=== PATIENT | male | born 1960 | race Caucasian/White ===

== ENCOUNTER 2024-04-07 11:39 | Emergency (ER) | payer BC, SELFPAY ==
[2024-04-07 11:46] VITALS: BP 165/89
--- NOTE | 2024-04-07 13:03 | ED.GENMED ---
History of Present Illness
<Geena Marie PA-C - Last Filed: 04/08/24 15:36>
General
Chief Complaint: Flank Pain
Source: patient
Exam Limitations: none
Time Seen by Provider: 04/07/24 12:05
Nursing documentation reviewed up to this point in time: agreed with
History of Present Illness
History of Present Illness:
63 y/o M with h/o many kidney stones int he past
has had L flank pain similar to previous stones for 2 weeks but today pain worse, n/v x 3 and unable to urinate well since last night
he hasn't been taking anything for painn
previously he has been able to pass all stones
no fever, chills, dysuria, urinary bleeding, abdominal distension, constipation
Past History
<JANI Todd Last Filed: 04/08/24 15:36>
Past History
ED Past Medical History: Hypercholesterolemia and Other (kidney stones)
Social History
Tobacco: Non-smoker
Review of Systems
<JANI Todd Last Filed: 04/08/24 15:36>
Review of Systems
Allergies reviewed?: Yes
All Other Systems: Not applicable
Phy Exam
<JANI Todd Last Filed: 04/08/24 15:36>
Physical Exam
Physical Exam:
GENERAL: Alert, comfotable, well appearing
Neck: supple
CARDIAC: Regular rate and rhythm .
LUNGS: Clear breath sounds bilaterally, no acute respiratory distress, no wheezes/rales/rhonchi
ABDOMEN: Soft, normal bowel sounds, slight bladder fullness, nontender no guarding, no rebound, neg garzon's
NEUROLOGICAL: Alert and oriented, no focal neuro deficits
SKIN: Warm and dry, skin intact.
PSYCH: Normal and appropriate interaction.
Course
<Geena Marie PA-C - Last Filed: 04/08/24 15:36>
Orders/Labs/Results
Orders:
Orders
04/07/24 12:59
Bladder Scan- Treatment ONCE
0.9% Sodium Chloride 1000 ml [Nss] 1,000 ml IV BOLUS
Ketorolac [Toradol] 15 mg IV NOW STA
Ondansetron Injectable [Zofran] 4 mg IV NOW STA
04/07/24 13:39
Complete Blood Count/With Diff Urgent
Comprehensive Metabolic Panel Urgent
Lipase Urgent
Urinalysis Reflex To Culture Urgent
Date Specimen was Collected: 04/07/24
Time Specimen was Collected: 13:27
Urine Microscopic Reflex Cult Urgent
04/07/24 15:28
CT Abd/pel Without Iv Or Oral Urgent
Comment:
Reason For Exam: suspected kidney stone L
Abnormal Lab Results
04/07/24
13:39
Hct 38.1 L %
(39.0-52.0)
MCHC 37.3 H g/dL
(33.0-37.0)
Absolute Neuts (auto) 9.1 H 10^3/uL
(1.4-6.5)
Absolute Lymphs (auto) 0.6 L 10^3/uL
(1.2-3.4)
Absolute Monos (auto) 0.7 H 10^3/uL
(0.1-0.6)
Neutrophils % 86.3 H %
(42.2-75.2)
Lymphocytes % 6.0 L %
(20.5-51.1)
BUN 23 H mg/dl
(9-20)
Glucose 110 H mg/dl
(70-99)
Total Protein 6.2 L g/dl
(6.3-8.2)
Ur Occult Blood Reflex 1+ A
(Negative)
Urine Bilirubin 1+ A
(Negative)
Urine RBC 26-30 A /HPF
(0-2)
04/07/24 13:39
04/07/24 13:39
Vital Signs
Initial and Last Documented VS:
Initial Vital Signs
Temp Pulse Resp BP Pulse Ox
97.8 F 67 18 165/89 100
04/07/24 11:46 04/07/24 11:46 04/07/24 11:46 04/07/24 11:46 04/07/24 11:46
Last Documented Vital Signs
Temp Pulse Resp BP Pulse Ox
97.8 F 59 16 119/79 100
04/07/24 11:46 04/07/24 15:22 04/07/24 15:22 04/07/24 15:22 04/07/24 15:22
<CEM Cosby - Last Filed: 04/07/24 22:51>
Orders/Labs/Results
Orders:
Orders
04/07/24 12:59
Bladder Scan- Treatment ONCE
0.9% Sodium Chloride 1000 ml [Nss] 1,000 ml IV BOLUS
Ketorolac [Toradol] 15 mg IV NOW STA
Ondansetron Injectable [Zofran] 4 mg IV NOW STA
04/07/24 13:39
Complete Blood Count/With Diff Urgent
Comprehensive Metabolic Panel Urgent
Lipase Urgent
Urinalysis Reflex To Culture Urgent
Date Specimen was Collected: 04/07/24
Time Specimen was Collected: 13:27
Urine Microscopic Reflex Cult Urgent
04/07/24 15:28
CT Abd/pel Without Iv Or Oral Urgent
Comment:
Reason For Exam: suspected kidney stone L
Abnormal Lab Results
04/07/24
13:39
Hct 38.1 L %
(39.0-52.0)
MCHC 37.3 H g/dL
(33.0-37.0)
Absolute Neuts (auto) 9.1 H 10^3/uL
(1.4-6.5)
Absolute Lymphs (auto) 0.6 L 10^3/uL
(1.2-3.4)
Absolute Monos (auto) 0.7 H 10^3/uL
(0.1-0.6)
Neutrophils % 86.3 H %
(42.2-75.2)
Lymphocytes % 6.0 L %
(20.5-51.1)
BUN 23 H mg/dl
(9-20)
Glucose 110 H mg/dl
(70-99)
Total Protein 6.2 L g/dl
(6.3-8.2)
Ur Occult Blood Reflex 1+ A
(Negative)
Urine Bilirubin 1+ A
(Negative)
Urine RBC 26-30 A /HPF
(0-2)
04/07/24 13:39
04/07/24 13:39
Vital Signs
Initial and Last Documented VS:
Initial Vital Signs
Temp Pulse Resp BP Pulse Ox
97.8 F 67 18 165/89 100
04/07/24 11:46 04/07/24 11:46 04/07/24 11:46 04/07/24 11:46 04/07/24 11:46
Last Documented Vital Signs
Temp Pulse Resp BP Pulse Ox
97.8 F 59 16 119/79 100
04/07/24 11:46 04/07/24 15:22 04/07/24 15:22 04/07/24 15:22 04/07/24 15:22
<Geena Marie PA-C - Last Filed: 04/08/24 15:36>
MDM/Problems Addressed
Differential Diagnosis Includes:
kidney stone, infetino, retetnion
MDM/Problems Addressed:
63 y/o M with h/o mulitple stones
abdiel is urologist
L flank pain intermittently x 2 weeks
felt worse today with n/v and prompted him to call urologist who told him to come in
pt is very stoic and looks comfortable
pain relieved with toradol
cr 1.3
ua neg for infection
pending CT scan
173: Received signout on patient. CAT scan does show a 3-4 mm calculus within the proximal left ureter with mild hydroureteronephrosis. Patient feels well received Toradol and Zofran here feeling much better. No evidence of infection in urine
normal white count and normal creatinine. I spoke with patient's urologist Dr. Ching . Patient is traveling to [place] on Friday however urology will attempt to try to put patient for the OR schedule on Friday.
Patient is to call the office tomorrow. Patient is to take Flomax nausea medicine and as per urology will give a prescription for Toradol. As per urology if patient were to travel with stent in place he would likely give patient pain medication
for discomfort post op.
Pt wishes to go home.
He was instructed to call urology first thing in the morning and he is to return if any worsening of symptoms.
<CEM Cosby - Last Filed: 04/07/24 22:51>
MDM/Problems Addressed
MDM/Problems Addressed:
1730: Received signout on patient. CAT scan does show a 3-4 mm calculus within the proximal left ureter with mild hydroureteronephrosis. Patient feels well received Toradol and Zofran here feeling much better. No evidence of infection in urine
normal white count and normal creatinine. I spoke with patient's urologist Dr. Ching . Patient is traveling to [place] on Friday however urology will attempt to try to put patient for the OR schedule on Friday.
Patient is to call the office tomorrow. Patient is to take Flomax nausea medicine and as per urology will give a prescription for Toradol. As per urology if patient were to travel with stent in place he would likely give patient pain medication
for discomfort post op.
Pt wishes to go home.
He was instructed to call urology first thing in the morning and he is to return if any worsening of symptoms.
<CEM Cosby - Last Filed: 04/07/24 22:51>
*Radiology
Radiology exam reviewed: radiology read reviewed
*Pulse Oximetry
Patient hypoxic: no
*Critical Care Note
Total Time (30-74mins, 75-104mins- exclusive of procedures): Not Applicable
ED Attending Note
<Geena Marie PA-C - Last Filed: 04/08/24 15:36>
-
Portions of this chart may have been created with voice recognition software.� Occasional wrong word or��sound alike� substitutions may have occurred due to the inherent limitations of voice recognition software.
Discharge Plan
Departure
Patient Disposition: Home (Routine Discharge)
Date of Disposition: 04/07/24
Time of Disposition: 17:50
Patient with high blood pressure during this ER visit?: Yes
Condition: Fair
Covid-19: Not Applicable
Discharge Problem:
renal colic
Instructions: Kidney Stones (DC), Flank Pain (DC), BLOOD PRESSURE
Prescriptions:
New
ondansetron 4 mg tablet,disintegrating
4 mg PO Q8H PRN (Reason: nausea and vomiting) Qty: 10 0RF
ketorolac 10 mg tablet
10 mg PO TID PRN (Reason: pain) Qty: 10 0RF
tamsulosin [Flomax] 0.4 mg capsule
0.4 mg PO DAILY Qty: 7 0RF
Referrals:
Emilio Preciado Jr., [Family Provider] -
Andre Ching MD [Active] -
Activity Restrictions/Additional Instructions:
As discussed stay well-hydrated. Strain all urine. You may take Toradol 10 mg orally every 8 hours as needed for pain. In addition a prescription for Flomax ( to help pass stone ) and Zofran ( for nausea) sent to pharmacy take as directed.
Call urology first thing in the morning for an appointment as soon as possible and for possible OR for stent on Friday. Return however to the ER if any worsening of symptoms include increased pain nausea vomiting fever chills or any further
concerns.
Interventions
Interventions:
*Risk Screen - Suicide Last Done: 04/07/24 14:09
*General Assessment Last Done: 04/07/24 14:09
*Neglect/Abuse Screening Last Done: 04/07/24 14:09
ED- Fall Risk Assessment Last Done: 04/07/24 14:09
*ED COVID-19 Vaccine History Last Done: 04/07/24 14:09
*Nursing Disposition Last Done: 04/07/24 17:55
GA-Kzvydo-Rrgcsgetug Assessment Last Done: 04/07/24 14:09
ED-Male Genitourinary Assessment Last Done: 04/07/24 14:09
Discharge Date and Time
Discharge Date/Time: 04/07/24 17:55
Print Language: KOREAN
[2024-04-07] MEDS: NSS 1000 IV (13:42)
[2024-04-07] MEDS: ZOFRAN 4 MG IV (13:43)
[2024-04-07] MEDS: TORADOL 15 MG IV (13:43)
[2024-04-07 14:16] LABS: Urine Albumin Negative (Neg - Trace); Urine Bilirubin 1+ (Negative); Urine Character Clear (Clear); Urine Color Yellow; Urine Glucose Negative (Negative); Urine Ketone Negative (Negative); Urine Leukocyte Negative (Negative); Urine Nitrite Negative (Negative); Urine Occult Blood 1+ (Negative); Urine Specific Gravity 1.025 (<1.030); Urine Urobilinogen Negative (Neg - 1+)
[2024-04-07 14:18] LABS: % Basophils 0.2 % (0-2); % Eosinophils 0.1 % (0-6); % Immature Granulocytes 0.4 % (0-0.5); % Neutrophils 86.3 % (42.2-75.2); Absolute Lymphocytes 0.6 10^3/uL (1.2-3.4); Absolute Monocytes 0.7 10^3/uL (0.1-0.6); Absolute Neutrophils 9.1 10^3/uL (1.4-6.5); Hematocrit 38.1 % (39.0-52.0); Hemoglobin 14.2 g/dL (13.0-18.0); Mean Corp Hgb Conc. 37.3 g/dL (33.0-37.0); Mean Corpuscular Hgb 29.8 pg (27.0-31.0); Mean Platelet Volume 10.1 fL (7.4-10.4); Nucleated Red Blood Cells % 0 % (-); Platelet Count 147 10^3/uL (130-400); Red Blood Cell Count 4.76 10^6/uL (4.70-6.10); Red Cell Dist. Width 12.8 % (11.5-14.5); White Blood Cell Count 10.6 10^3/uL (4.8-10.8)
[2024-04-07 14:43] LABS: ALT (SGPT) 28 U/L (0-50); AST (SGOT) 35 U/L (17-59); Albumin 4.5 g/dl (3.5-5.0); Alkaline Phosphatase 85 U/L (38-126); Blood Urea Nitrogen 23 mg/dl (9-20); Calcium 9.3 mg/dl (8.4-10.2); Carbon Dioxide 26 mmol/L (22-30); Chloride 105 mmol/L (98-107); Glucose 110 mg/dl (70-99); Lipase 89 U/L (23-300); Potassium 4.1 mmol/L (3.5-5.1); Sodium 136 mmol/L (135-145); Total Bilirubin 1.1 mg/dl (0.2-1.3); Total Protein 6.2 g/dl (6.3-8.2); eGFR > 60.00
[2024-04-07 15:12] LABS: Urine Mucus Many
[2024-04-07 15:13] LABS: Urine Amorphous Seen
[2024-04-07 15:14] LABS: Urine Red Blood Cell 26-30 /HPF (0-2); Urine White Cell 0-2 /HPF (0-5)
[2024-04-07 15:22] VITALS: BP 119/79
== END 2024-04-07 17:55 | disposition home or self-care (01) ==
LOC: EMR 11:39
PROVIDERS: Physician Assistant; EMERGENCY PHYSICIAN Student in an Organized Health Care Education/Training Program; FAMILY PHYSICIAN Family Medicine; OTHER PHYSICIAN Surgery
DX: N13.2 Hydronephrosis with renal and ureteral calculous obstruction (principal); R03.0 Elevated blood-pressure reading, without diagnosis of hypertension; G62.9 Polyneuropathy, unspecified; E78.00 Pure hypercholesterolemia, unspecified; Z87.442 Personal history of urinary calculi; Z88.0 Allergy status to penicillin
CPT/HCPCS: 99284; 96374; 96375; 96361; 51798; 74176; 80053; 81003; 81015; 83690; 85025

== ENCOUNTER → 2024-08-02 07:04 | Outpatient (REF) | payer BC, SELFPAY | LOC: HWRAD 07:04 | PROVIDERS: ATTENDING PHYSICIAN Family Medicine | DX: R16.1 Splenomegaly, not elsewhere classified (principal) | CPT/HCPCS: 76700 ==

== ENCOUNTER → 2024-08-19 14:42 | Outpatient (REF) | payer BC, SELFPAY ==
[2024-08-19 15:59] LABS: % Basophils 0.5 % (0-2); % Eosinophils 2.9 % (0-6); % Immature Granulocytes 0.2 % (0-0.5); % Lymphocytes 23.6 % (20.5-51.1); % Monocytes 8.4 % (1.7-9.3); % Neutrophils 64.4 % (42.2-75.2); Absolute Eosinophils 0.1 10^3/uL (0-0.7); Absolute Monocytes 0.4 10^3/uL (0.1-0.6); Absolute Neutrophils 2.7 10^3/uL (1.4-6.5); Hematocrit 38.9 % (39.0-52.0); Hemoglobin 13.9 g/dL (13.0-18.0); Mean Corp Hgb Conc. 35.7 g/dL (33.0-37.0); Mean Corpuscular Hgb 30.2 pg (27.0-31.0); Mean Corpuscular Volume 84.4 fL (80.0-94.0); Mean Platelet Volume 9.7 fL (7.4-10.4); Nucleated Red Blood Cells % 0 % (-); Platelet Count 161 10^3/uL (130-400); Red Blood Cell Count 4.61 10^6/uL (4.70-6.10); Red Cell Dist. Width 12.3 % (11.5-14.5); White Blood Cell Count 4.2 10^3/uL (4.8-10.8)
[2024-08-21 18:24] LABS: Platelet Antibody, Direct IgG Negative (Negative); Platelet Antibody, Direct IgM Negative (Negative)
[2024-08-22 02:52] LABS: ANA, IgG Reflex to HEp-2 None Detected (None Detected)
[2024-08-22 08:36] LABS: Cardiolipin IgA Antibody <10 APL (<=11); Cardiolipin IgM Antibody <10 MPL (<=12); Cardiolipin Igg Antibody <10 GPL (<=14)
== END ==
LOC: REG 14:42
PROVIDERS: ATTENDING PHYSICIAN Internal Medicine Hematology & Oncology; FAMILY PHYSICIAN Family Medicine
DX: R16.1 Splenomegaly, not elsewhere classified (principal)
CPT/HCPCS: 36415; 85025; 86023; 86038; 86147